=== PATIENT | male | born 1940 | race Caucasian/White ===

== ENCOUNTER 2024-08-06 09:04 | Day surgery (SDC) | payer OTHER ==
[2024-08-06 14:36] VITALS: O2SAT 98
[2024-08-06 15:39] VITALS: BP_SYST 126; PULSE 63; RESP 14
== END 2024-08-06 12:20 | disposition home or self-care (01) ==
LOC: SDS 09:04 → SMU 09:05 → SDS 12:20
PROVIDERS: ATTEND Internal Medicine Gastroenterology
DX: C19 Malignant neoplasm of rectosigmoid junction (principal); C78.7 Secondary malignant neoplasm of liver and intrahepatic bile duct; D12.4 Benign neoplasm of descending colon; D12.3 Benign neoplasm of transverse colon; K21.9 Gastro-esophageal reflux disease without esophagitis; I10 Essential (primary) hypertension; E11.9 Type 2 diabetes mellitus without complications; E78.5 Hyperlipidemia, unspecified; F17.200 Nicotine dependence, unspecified, uncomplicated; M81.0 Age-related osteoporosis without current pathological fracture; Z98.890 Other specified postprocedural states; Z79.84 Long term (current) use of oral hypoglycemic drugs; Z79.899 Other long term (current) drug therapy
CPT/HCPCS: 45381; 45385; 99152; 82948; 88305; 99153; G0378; J7120